=== PATIENT | female | born 1970 | race Caucasian/White ===

== ENCOUNTER 2022-01-06 12:34 | Emergency (ER) | payer OTHER, SELFPAY ==
--- NOTE | 2022-01-06 12:49 | HMH.EDUTC ---
[facility] [place] Disposition Clinical Impression: Sting from hornet, wasp, or bee Qualifiers: Encounter type: initial encounter Injury intent: accidental or unintentional Qualified Code(s): T63.451A - Toxic effect of venom of hornets, accidental (unintentional), initial encounter Disposition: Home, Self-Care Condition on Discharge: Good Instructions: How to Care for an Insect Bite or Sting, DI for Insect Bites and Stings, Methylprednisolone Injection Additional Instructions: Rest the extremity, apply ice for 15 minutes as tolerated three or four times per day, Elevate the extremity as tolerated while you are resting. Start the steroids tomorrow since you had the injection here today. Take benedryl every 6 hours as regularly as you can for the next couple of days, but it will cause drowsiness so don't drive or operate heavy machinery after taking it. Follow up with your regular doctor. GO TO THE ER FOR ANY WORSENING SYMPTOMS Prescriptions: methylPREDNISolone [Medrol] 4 mg PO DIRECTED 6 Days #21 packet Transmission Status: Received by [facility] Triamcinolone Acetonide 1 applicatio TP TIDP PRN 7 Days #1 gm PRN Reason: Itching Transmission Status: Received by [facility] Referrals: Dejan Freed [Primary Care Provider] - Forms: Work/School Release Time of Disposition: 13:06 Medical Decision Making - Medical Records Medical records reviewed: No: I reviewed the patient's medical records. - Sky Inquiry Pt receiving controlled substance: No Vital Signs: 01/06/22 12:52 01/06/22 13:18 Temperature 98.3 F 98.3 F Temperature Source Oral Pulse Rate 89 Pulse Rate [Left Radial] 89 Respiratory Rate 17 17 Blood Pressure 132/73 Blood Pressure [Right Arm] 132/73 Blood Pressure Mean [Right Arm] 92 02 Sat by Pulse Oximetry 99 Orders (Tests/Meds): ED MEDICATIONS Discontinued Medications Generic Name Dose Route Start Last Admin Trade Name Freq PRN Reason Stop Dose Admin Methylprednisolone Sodium Succinate 125 mg 01/06/22 13:01 01/06/22 13:17 Methylprednisolone Sod Succ 125mg Vial IM 01/06/22 13:02 125 mg ONCE ONE Administration [facility] [place] HPI - General Stated complaint: right foot swelling Time Seen by Provider: 01/06/22 12:49 - History of Present Illness Provider Complaint: She states that she was stung by an unknown insect yesterday on her right foot. She had sandals on and she was walking in grass when it stung her. She did not see a bee, but she did remove a stinger from the sting site (between her 4th and 5th toes). She c/o right foot swelling. She denies any other swelling or reaction. She denies any shortness of breath, chest pain or swelling of lips or mouth. - Related Data Previous Rx's Medication Instructions Recorded Triamcinolone Acetonide 1 applicatio TP TIDP PRN 7 Days #1 01/06/22 gm methylPREDNISolone [Medrol] 4 mg PO DIRECTED 6 Days #21 01/06/22 packet Allergies Allergy/AdvReac Type Severity Reaction Status Date / Time No Known Allergies Allergy Verified 01/06/22 12:54 [facility] History - Hepatitis A Screen Attestation statement:: This patient has been screened for Hepatitis A risk factors. I have reviewed the patient's past medical history: Yes ROS Obtained: Yes All systems reviewed & no additional complaints - Constitutional Constitutional: Denies chills, Denies fever(s) - Eyes Eyes: Denies eye discharge, Denies itchy eyes - ENT Ears, Nose, Mouth, and Throat: Denies dizziness, Denies otalgia, Denies nasal congestion, Denies sore throat, Denies throat swelling - Cardiovascular Cardiovascular: Denies chest pain - Respiratory Respiratory: Denies chest congestion, Denies cough, Denies dyspnea, Denies stridor, Denies wheezing - Gastrointestinal Gastrointestingal: Denies: abdominal pain, diarrhea, nausea, vomiting - Musculoskeletal Musculoskeletal: Denies joint pain - Integumentary/Breasts Skin/Breast: R
[2022-01-06 12:52] VITALS: BP 132/73; PULSE 89; RESP 17; TEMP 36.8; O2SAT 99; BMI 24.3
[2022-01-06 13:18] VITALS: BP 132/73; PULSE 89; RESP 17; TEMP 36.8
== END 2022-01-06 13:19 | disposition home or self-care (01) ==
PROVIDERS: Emergency Provider Nurse Practitioner Family; PCP Family Medicine
DX: T63.451A Toxic effect of venom of hornets, accidental (unintentional), initial encounter (principal); Y92.096 Garden or yard of other non-institutional residence as the place of occurrence of the external cause
CPT/HCPCS: 96372; 99212; G0463